=== PATIENT | female | born 1950 | race Caucasian/White ===

== ENCOUNTER 2023-10-13 14:37 | Inpatient (IN) | payer BC, OTHER, MEDICARE ==
[~2023-10-13] VITALS: Ht 162.6 cm; Wt 80.6 kg
[2023-10-13] MEDS ORDERED: MOM 30ML SUSPENSION UDC PO PRN (16:55)
[2023-10-13] MEDS ORDERED: MAALOX 30 ML SUSP *UDC PO PRN (16:55)
[2023-10-13 17:00] VITALS: BP 138/76; TEMP 98.1; O2SAT 98
[2023-10-13 17:04] LABS: BASO % 0.2 % (0.0-1.0); EOS % 0.4 % (0.0-3.0); HEMATOCRIT 43.1 % (36.0-47.0); HEMOGLOBIN 15.1 g/dl (12.0-15.5); LYMPH # 2.3 10^3/uL (1.5-5.0); LYMPH % 24.3 % (24.0-44.0); MEAN CORPUSCULAR HEMOGLOBIN 31.9 pg (27.0-33.0); MEAN CORPUSCULAR VOLUME 91.1 fl (80.0-96.0); MONO # 1.1 10^3/uL (0.0-0.8); MONO % 11.2 % (2.0-8.0); NEUTROPHILS # 5.9 10^3/uL (1.5-8.5); NEUTROPHILS % 63.6 % (36.0-66.0); PLATELET COUNT, AUTOMATED 232 10^3/uL (150-450); RED BLOOD COUNT 4.73 10^6/uL (4.00-5.40); WHITE BLOOD COUNT 9.3 10^3/uL (4.0-10.0)
[2023-10-13 17:26] LABS: BLOOD UREA NITROGEN 7 MG/DL (9-23); CALCIUM LEVEL 9.7 MG/DL (8.3-10.6); CARBON DIOXIDE LEVEL 27 MMOL/L (20-31); CHLORIDE LEVEL 103 MMOL/L (98-107); CREATININE FOR GFR 0.47 MG/DL (0.55-1.30); GLOMERULAR FILTRATION RATE > 60.0 (>39); GLUCOSE, FASTING 126 MG/DL (74-106); MAGNESIUM LEVEL 1.9 MG/DL (1.8-2.4); POTASSIUM SERUM 3.8 MMOL/L (3.5-5.1); SODIUM LEVEL 136 MMOL/L (136-145)
[2023-10-13 17:29] LABS: INR 0.93; PARTIAL THROMBOPLASTIN TIME 21.7 SECONDS (24.8-34.2); PROTHROMBIN TIME 12.2 SECONDS (12.5-14.5)
[2023-10-13] MEDS ORDERED: VITAD400CA PO (17:46)
[2023-10-13] MEDS ORDERED: AMLO1TAB24 PO (17:46)
[2023-10-13] MEDS ORDERED: VITA50TA47 PO (17:46)
[2023-10-13] MEDS ORDERED: HYDR-4571 PO (17:46)
[2023-10-13] MEDS ORDERED: LOSA100T46 PO (17:46)
[2023-10-13] MEDS ORDERED: FISH1CAP26 PO (17:46)
[2023-10-13] MEDS ORDERED: LEVO112T2 PO (17:46)
[2023-10-13] MEDS ORDERED: ONE-TAB31 PO (17:46)
[2023-10-13] MEDS ORDERED: HOME MED LIST COMPLETE! XX SCH (17:50)
[2023-10-13] MEDS: HEPARIN SOD (PORCINE) 5000UNITS/ML 1ML VIAL/SYRINGE SC SCH (20:24)
[2023-10-13] MEDS: DOCUSATE SODIUM 100MG CAPSULE PO SCH (20:24)
[2023-10-13] MEDS: PERCOCET 5MG/325MG TAB PO PRN (21:20)
[2023-10-13 22:00] VITALS: BP 145/72; TEMP 97.9; O2SAT 99
[2023-10-14] VITALS (8 sets, daily range): BP systolic 122–154; BP diastolic 64–83; TEMP 96.8–98.3; O2SAT 93–98
[2023-10-14 06:28] LABS: BASO % 0.2 % (0.0-1.0); EOS # 0.1 10^3/uL (0.0-0.5); EOS % 1.1 % (0.0-3.0); HEMATOCRIT 39.5 % (36.0-47.0); HEMOGLOBIN 13.6 g/dl (12.0-15.5); LYMPH # 1.5 10^3/uL (1.5-5.0); LYMPH % 26.8 % (24.0-44.0); MEAN CORPUSCULAR HEMOGLOBIN 31.5 pg (27.0-33.0); MEAN CORPUSCULAR HGB CONC 34.4 g/dl (32.0-36.5); MEAN CORPUSCULAR VOLUME 91.4 fl (80.0-96.0); MONO # 0.7 10^3/uL (0.0-0.8); MONO % 11.7 % (2.0-8.0); NEUTROPHILS # 3.4 10^3/uL (1.5-8.5); NEUTROPHILS % 59.8 % (36.0-66.0); PLATELET COUNT, AUTOMATED 190 10^3/uL (150-450); RED BLOOD COUNT 4.32 10^6/uL (4.00-5.40); WHITE BLOOD COUNT 5.6 10^3/uL (4.0-10.0)
[2023-10-14 06:51] LABS: BLOOD UREA NITROGEN 6 MG/DL (9-23); CALCIUM LEVEL 8.9 MG/DL (8.3-10.6); CARBON DIOXIDE LEVEL 31 MMOL/L (20-31); CHLORIDE LEVEL 108 MMOL/L (98-107); CREATININE FOR GFR 0.53 MG/DL (0.55-1.30); GLOMERULAR FILTRATION RATE > 60.0 (>39); GLUCOSE, FASTING 125 MG/DL (74-106); MAGNESIUM LEVEL 1.9 MG/DL (1.8-2.4); POTASSIUM SERUM 3.9 MMOL/L (3.5-5.1); SODIUM LEVEL 141 MMOL/L (136-145)
[2023-10-14 06:54] LABS: THYROID STIMULATING HORMONE 6.631 uIU/ML (0.55-4.78)
[2023-10-14] MEDS ORDERED: propofoL 200 MG/20 ML VIAL As Ordered ONE (10:16)
[2023-10-14] MEDS ORDERED: fentaNYL 100 MCG/2 ML INJECTION As Ordered ONE (10:16)
[2023-10-14] MEDS ORDERED: LIDOCAINE 2% 100MG/5ML SDV (FOR ANES.) As Ordered ONE (10:16)
[2023-10-14] MEDS: CLINDAMYCIN 900MG/50ML PREMIX BAG As Ordered ONE (11:58)
[2023-10-14] MEDS ORDERED: ONDANSETRON 4MG 2ML VIAL As Ordered ONE (12:27)
[2023-10-14] MEDS ORDERED: ACETAMINOPHEN 1000MG 100ML IV BAG As Ordered ONE (12:27)
[2023-10-14] MEDS ORDERED: ONDANSETRON 4MG 2ML VIAL IV PRN (12:40)
[2023-10-14] MEDS ORDERED: fentaNYL 100 MCG/2 ML INJECTION IV PRN (12:40)
[2023-10-14] MEDS ORDERED: METOCLOPRAMIDE INJ 10MG/2ML VIAL As Ordered ONE (12:59)
[2023-10-14] MEDS: BACITRACIN OINTMENT 30GM TUBE As Ordered ONE (13:26)
[2023-10-14] MEDS: MORPHINE 2 MG/ML 1ML VIAL IV PRN (13:50)
[2023-10-14] MEDS: VITAMIN D (CHOLECALCIFEROL) 400 INTERNATIONAL UNITS TAB PO SCH (14:51)
[2023-10-14] MEDS: LEVOTHYROXINE 112MCG TABLET (0.112MG) PO SCH (14:51)
[2023-10-14] MEDS: OMEGA-3 1000MG CAPSULE PO SCH (14:51)
[2023-10-14] MEDS: MULTIVITAMINS/MINERALS THERAP 1 TAB PO SCH (14:51)
[2023-10-14] MEDS: THIAMINE 100 MG TAB PO SCH (14:51)
[2023-10-14] MEDS: amLODIPine 5 MG TAB PO SCH (14:52)
[2023-10-14] MEDS: LOSARTAN 50MG TABLET PO SCH (14:52)
[2023-10-14] MEDS: LR 1,000 ML IV SCH (19:14)
[2023-10-14] MEDS: CLINDAMYCIN 600 MG in IV 1 EA IV SCH (19:31)
[2023-10-15 02:12] VITALS: BP 148/74; TEMP 98.1; O2SAT 92
[2023-10-15 06:04] VITALS: BP 121/60; TEMP 95.9; O2SAT 92
[2023-10-15 06:32] LABS: BASO % 0.1 % (0.0-1.0); EOS # 0.1 10^3/uL (0.0-0.5); EOS % 0.9 % (0.0-3.0); HEMATOCRIT 34.3 % (36.0-47.0); LYMPH # 1.7 10^3/uL (1.5-5.0); LYMPH % 22.7 % (24.0-44.0); MEAN CORPUSCULAR HEMOGLOBIN 31.5 pg (27.0-33.0); MONO # 0.9 10^3/uL (0.0-0.8); MONO % 11.6 % (2.0-8.0); NEUTROPHILS # 4.9 10^3/uL (1.5-8.5); NEUTROPHILS % 64.4 % (36.0-66.0); PLATELET COUNT, AUTOMATED 174 10^3/uL (150-450); RED BLOOD COUNT 3.81 10^6/uL (4.00-5.40); WHITE BLOOD COUNT 7.6 10^3/uL (4.0-10.0)
[2023-10-15 06:56] LABS: BLOOD UREA NITROGEN 6 MG/DL (9-23); CARBON DIOXIDE LEVEL 28 MMOL/L (20-31); CHLORIDE LEVEL 102 MMOL/L (98-107); CREATININE FOR GFR 0.44 MG/DL (0.55-1.30); GLOMERULAR FILTRATION RATE > 60.0 (>39); GLUCOSE, FASTING 145 MG/DL (74-106); MAGNESIUM LEVEL 1.8 MG/DL (1.8-2.4); POTASSIUM SERUM 3.5 MMOL/L (3.5-5.1); SODIUM LEVEL 135 MMOL/L (136-145)
[2023-10-15 09:52] VITALS: BP 141/78
[2023-10-15] MEDS ORDERED: ENOXAPARIN 40MG/0.4ML SYRINGE (J1650 PER 10MG) SC SCH (14:00)
[2023-10-16] MEDS ORDERED: OXYC1TAB23 PO (11:23)
== END 2023-10-15 11:15 | disposition home or self-care (01) | DRG 315 ==
LOC: UNDOADMIN 16:10 → M MS5PR 16:10 → M ED INP 16:10 → EDBD 16:10
PROVIDERS: ADMIT Internal Medicine Nephrology; ATTEND Orthopaedic Surgery Hand Surgery
PROC: 0PSF04Z Reposition Right Humeral Shaft with Internal Fixation Device, Open Approach (ICD-10-PCS; principal; 2023-10-14 11:00)
DX: S42.391A Other fracture of shaft of right humerus, initial encounter for closed fracture (principal); I10 Essential (primary) hypertension; E11.9 Type 2 diabetes mellitus without complications; E03.9 Hypothyroidism, unspecified; E55.9 Vitamin D deficiency, unspecified; W00.0XXA Fall on same level due to ice and snow, initial encounter; Y92.009 Unspecified place in unspecified non-institutional (private) residence as the place of occurrence of the external cause; Z88.2 Allergy status to sulfonamides; Z88.0 Allergy status to penicillin; Z79.899 Other long term (current) drug therapy; F09 Unspecified mental disorder due to known physiological condition

== ENCOUNTER → 2023-10-26 | Outpatient (CLI) | payer MEDICARE, BC, OTHER ==
[~2023-10-26] MED LIST: AMLO1TAB24 PO; FISH1CAP26 PO; HYDR-4571 PO; LEVO112T2 PO; LOSA100T46 PO; ONE-TAB31 PO; OXYC1TAB23 PO; VITA50TA47 PO; VITAD400CA PO
== END ==
LOC: M SOG 10:20
PROVIDERS: ATTEND Physician Assistant
DX: S42.301D Unspecified fracture of shaft of humerus, right arm, subsequent encounter for fracture with routine healing (principal)

== ENCOUNTER → 2023-12-14 | Outpatient (CLI) | payer MEDICARE, BC, OTHER | LOC: M SOG 07:50 | PROVIDERS: ATTEND Physician Assistant | DX: S42.301D Unspecified fracture of shaft of humerus, right arm, subsequent encounter for fracture with routine healing (principal) ==

== ENCOUNTER → 2024-02-01 | Outpatient (CLI) | payer MEDICARE, BC, OTHER | LOC: M SOG 07:54 | PROVIDERS: ATTEND Physician Assistant | DX: S42.301D Unspecified fracture of shaft of humerus, right arm, subsequent encounter for fracture with routine healing (principal); Y93.9 Activity, unspecified; Y92.9 Unspecified place or not applicable ==